=== PATIENT | female | born 1955 | race Caucasian/White ===

== ENCOUNTER 2021-01-11 15:25 | Emergency (ER) | payer MEDICARE, SELFPAY ==
--- NOTE | ~2021-01-11 | XR_ITS ---
EXAMINATION: XR chest 2V, XR sternum min 2V DATE: 01/11/2021 16:32 INDICATION: Sternal/chest discomfort post fall one week prior TECHNIQUE: 1. Frontal and lateral views of the chest were obtained. 2. Lateral and FAYE views of the sternum were obtained. COMPARISON: None FINDINGS: No focal airspace opacities, pulmonary edema, pleural effusion or pneumothorax. Opacity with smooth m argins posterior to the heart and at the left cardiophrenic angle suggesting a hiatal hernia. Heart s ize is normal. Tortuous thoracic aorta. Moderate thoracic spondylosis. There is a subtle step-off raul ng the anterior cortex of the lower sternum consistent with nondisplaced fracture. No evident overlyi ng presternal or retrosternal hematoma. IMPRESSION: 1. Nondisplaced fracture involving at least the anterior cortex of the inferior sternum. 2. No acute cardiopulmonary disease. 3. Likely small to moderate hiatal hernia. Reviewed, dictated and finalized at location A. RONMENTAL ATTORNEY IMPRESSION: 1. Nondisplaced fracture involving at least the anterior cortex of the inferior sternum. 2. No acute cardiopulmonary disease. 3. Likely small to moderate hiatal hernia.
--- NOTE | 2021-01-11 15:33 | ED.FALL ---
HPI - Fall General Chief Complaint: Chest Pain Stated Complaint: Chest Pain/Fall Time Seen by Provider: 01/11/21 15:32 Source: patient Mode of arrival: ambulatory Limitations: no limitations History of Present Illness HPI Narrative: Patient is a 65-year-old female who presents with right-sided sternal and rib pain. She reports slip and fall on Friday in which she fell on chest. She reports consistent pain since. She reports increased pain with deep breathing. Patient reports she is unable to cough without pain. She denies cardiac pain. She denies shortness of breath. She denies other injuries. She reports taking multiple otc meds without relief. MD complaint: fall Related Data Home Medications Medication Instructions Recorded Confirmed bupropion HCl 300 mg PO DAILY 01/11/21 01/11/21 escitalopram oxalate 20 mg PO DAILY 01/11/21 01/11/21 ferrous sulfate 325 mg PO BID 01/11/21 01/11/21 hydrocodone-acetaminophen 1 tablet PO Q4H PRN 01/11/21 01/11/21 hydroxychloroquine 200 mg PO DAILY 01/11/21 01/11/21 lisinopril 5 mg PO DAILY 01/11/21 01/11/21 omeprazole 40 mg PO DAILY 01/11/21 01/11/21 pravastatin 20 mg PO DAILY 01/11/21 01/11/21 rivaroxaban [Xarelto] 20 mg PO DAILY 01/11/21 01/11/21 sotalol 80 mg PO BID 01/11/21 01/11/21 spironolactone 25 mg PO DAILY 01/11/21 01/11/21 sulfamethoxazole-trimethoprim 1 tablet PO 3XW 01/11/21 01/11/21 zolpidem 5 mg PO HS PRN 01/11/21 01/11/21 Allergies Allergy/AdvReac Type Severity Reaction Status Date / Time morphine Allergy Unknown Unknown Verified 01/11/21 16:01 Review of Systems Review of Systems: Narrative: CONSTITUTIONAL: Denies fever, chills, or sweats. EYES: Denies visual changes, redness, or discharge. ENT: Denies rhinorrhea, congestion, sore throat, or otalgia. CARDIOVASCULAR: Denies chest pain, palpitations, or edema. RESPIRATORY: Denies cough or dyspnea. Reports midsternal pain in the chest related to fall GASTROINTESTINAL: Denies abdominal pain, nausea, vomiting, or diarrhea. GENITOURINARY: Denies dysuria or hematuria. SKIN: Denies rash or itching. MUSCULOSKELETAL: Reports right rib and sternal pain NEUROLOGIC: Denies headache, numbness, dizziness, or weakness. PSYCHIATRIC: Denies anxiety or depression. [facility] Past Medical History Medical History Arthritis Atrial fibrillation, controlled CHF (congestive heart failure) GERD (gastroesophageal reflux disease) Mass of right lung Post-menopausal UTI (urinary tract infection) Karena's osteochondritis Surgical History Surgical History H/O Spinal surgery Family History Family History (Updated 01/11/21 @ 15:40 by MARY GRACE Sandoval) Other Heart disease Social History Social History (Updated 01/11/21 @ 15:40 by MARY GRACE Sandoval) Smoking status: Never smoker Alcohol intake: never Substance use: never Occupation/Education: retired Comments At the time of signature, I have reviewed and agree with nursing past medical, surgical, social, and family history unless otherwise noted. Please see nursing chart for further information. There is no relevant family history pertinent to the presenting complaint. Exam Narrative: Exam Narrative: GENERAL: Well-appearing, well-nourished, and in no acute distress. HEAD: Normocephalic, atraumatic. EYES: EOMI. No redness or drainage. Conjunctiva are normal. ENT: Mucous membranes pink and moist. NECK: AROM. Supple. No lymphadenopathy. CHEST: No respiratory distress. Clear to auscultation. HEART: Regular rate and rhythm. EXTREMITIES: Normal range of motion. No edema. SKIN: Warm, dry, no rash. NEURO: No focal deficits. Alert and oriented x3. Gait steady. PSYCH: Normal affect. No signs of depression or anxiety. Course Vital Signs Vital signs: Vital Signs Temperature 36.7 C 01/11/21 15:40 Pulse Rate 60 01/11/21 15:40 Respiratory Rate
[2021-01-11 15:40] VITALS: BP 99/68; PULSE 60; RESP 20; TEMP 36.7; O2SAT 100
== END 2021-01-11 17:03 | disposition short-term general hospital (02) ==
PROVIDERS: Emergency Provider Nurse Practitioner; PCP Internal Medicine
DX: S22.20XA Unspecified fracture of sternum, initial encounter for closed fracture (principal); W01.0XXA Fall on same level from slipping, tripping and stumbling without subsequent striking against object, initial encounter; M19.90 Unspecified osteoarthritis, unspecified site; I48.91 Unspecified atrial fibrillation; I50.9 Heart failure, unspecified; K21.9 Gastro-esophageal reflux disease without esophagitis; A50.02 Early congenital syphilitic osteochondropathy
CPT/HCPCS: 71046; 71120; 99213; G0463

== ENCOUNTER 2022-10-19 08:30 | Emergency (ER) | payer MEDICARE, SELFPAY ==
[2022-10-19 08:41] VITALS: BP 95/62; PULSE 74; RESP 16; TEMP 35.7; O2SAT 99
--- NOTE | 2022-10-19 09:10 | ED.FEMALEGU ---
HPI - Female Genitourinary General Chief complaint: Urogenital-Female <Kala Fallon NP - Last Filed: 10/22/22 15:24> Stated complaint: UTI <Kala Fallon NP - Last Filed: 10/22/22 15:24> Time Seen by Provider: 10/19/22 09:10 <Kala Fallon NP - Last Filed: 10/22/22 15:24> Source: patient, RN notes reviewed and old records reviewed <Kala Fallon NP - Last Filed: 10/22/22 15:24> Mode of arrival: ambulatory <Kala Fallon NP - Last Filed: 10/22/22 15:24> Limitations: no limitations <Kala Fallon NP - Last Filed: 10/22/22 15:24> History of Present Illness HPI Narrative: 67-year-old female presents to [facility] with complaints of burning with urination starting at 7:30 a.m. this morning with frequency and urgency. Patient states she has a history of having autoimmune disease called GPA vasculitis and does take Bactrim 3 times per week. Patient denies any vaginal discharge or any concern STD exposure. Patient denies any flank pain or any visible blood in urine, reports history of UTI's. <Kala Fallon NP - Last Filed: 10/22/22 15:24> MD elicited complaint: UTI <Kala Fallon NP - Last Filed: 10/22/22 15:24> Onset (ago): hour(s) (0730 this morning) <Kala Fallon NP - Last Filed: 10/22/22 15:24> Location of symptoms: perineum <Kala Fallon NP - Last Filed: 10/22/22 15:24> Severity: similar to previous episodes <Kala Fallon NP - Last Filed: 10/22/22 15:24> Severity scale (1-10): 10 <Kala Fallon NP - Last Filed: 10/22/22 15:24> Quality of pain: sharp and burning <Kala Fallon NP - Last Filed: 10/22/22 15:24> Urinary symptoms: Dysuria (Burning and perineal pain) <Kala Fallon NP - Last Filed: 10/22/22 15:24> Related Data Home medications: Home Medications Medication Instructions Recorded Confirmed bupropion HCl 300 mg 24 hr tablet, 300 mg PO DAILY 01/11/21 10/19/22 extended release escitalopram oxalate 20 mg tablet 20 mg PO DAILY 01/11/21 10/19/22 ferrous sulfate 325 mg (65 mg 325 mg PO BID 01/11/21 10/19/22 iron) tablet hydrocodone 10 mg-acetaminophen 1 tablet PO Q4H PRN Pain 01/11/21 10/19/22 325 mg tablet hydroxychloroquine 200 mg tablet 200 mg PO DAILY 01/11/21 10/19/22 lisinopril 5 mg tablet 5 mg PO DAILY 01/11/21 10/19/22 omeprazole 40 mg capsule,delayed 40 mg PO DAILY 01/11/21 10/19/22 release pravastatin 20 mg tablet 20 mg PO DAILY 01/11/21 10/19/22 rivaroxaban 20 mg tablet (Xarelto) 20 mg PO DAILY 01/11/21 10/19/22 sotalol 80 mg tablet 80 mg PO BID 01/11/21 10/19/22 spironolactone 25 mg tablet 25 mg PO DAILY 01/11/21 10/19/22 zolpidem 5 mg tablet 5 mg PO HS PRN Sleep 01/11/21 10/19/22 <Kala Fallon NP - Last Filed: 10/22/22 15:24> Allergies/Adverse reactions: Allergies Allergy/AdvReac Type Severity Reaction Status Date / Time morphine Allergy Unknown Unknown Verified 10/19/22 09:14 <Kala Fallon NP - Last Filed: 10/22/22 15:24> Review of Systems Review of Systems: CONSTITUTIONAL: Denies fever, chills, or sweats. CARDIOVASCULAR: Denies chest pain, palpitations, or edema. RESPIRATORY: Denies cough or dyspnea. GASTROINTESTINAL: Denies abdominal pain, nausea, vomiting, or diarrhea. GENITOURINARY: Reports dysuria, frequency, urgency. Denies flank pain or hematuria. Positive for pain perineal area with urinary burning SKIN: Denies rash or itching. MUSCULOSKELETAL: Denies back pain or myalgia. Denies CVA tenderness NEUROLOGIC: Denies headache <Kala Fallon NP - Last Filed: 10/22/22 15:24> All systems reviewed & are unremarkable except as noted in HPI and below <Kala Fallon NP - Last Filed: 10/22/22 15:24> [facility] Past Medical History Medical History: Medical History (Updated 10/20/22 @ 00:00 by Background Daemon) Arthritis Atrial fibrillation, controlled CHF (congestive heart failure) GERD
== END 2022-10-19 09:23 | disposition home or self-care (01) ==
PROVIDERS: Emergency Provider Registered Nurse; PCP Internal Medicine
DX: N39.0 Urinary tract infection, site not specified (principal); I48.91 Unspecified atrial fibrillation; I50.9 Heart failure, unspecified; Z79.891 Long term (current) use of opiate analgesic
CPT/HCPCS: 81003; 87077; 87086; 87186; 99213; G0463

== ENCOUNTER 2023-11-12 17:11 | Emergency (ER) | payer MEDICARE, SELFPAY ==
--- NOTE | ~2023-11-12 | XR_ITS ---
EXAMINATION: XR chest 2V DATE: 11/12/2023 17:49 INDICATION: Fever. TECHNIQUE: Frontal and lateral views of the chest were obtained. COMPARISON: Chest 2 views 01/11/2021 FINDINGS: There are airspace opacities in right lower lung zone. No pleural effusion or pneumothorax. The heart size is normal. There is a large hiatal hernia. IMPRESSION: 1. Airspace opacities in right lower lung zone, consistent with atelectasis versus pneumonia. 2. Large hiatal hernia. Reviewed, dictated and finalized at location E. TRIC ENGINE MECHANIC IMPRESSION: 1. Airspace opacities in right lower lung zone, consistent with atelectasis simon silke pneumonia. 2. Large hiatal hernia.
[2023-11-12 17:17] VITALS: BP 92/58; PULSE 86; RESP 18; TEMP 36.9; O2SAT 96
--- NOTE | 2023-11-12 17:19 | ED.URI ---
HPI - URI/Sore Throat General Chief Complaint: Upper Respiratory Infection Stated Complaint: poss bronchitis Time Seen by Provider: 11/12/23 17:38 Source: patient and RN notes reviewed Mode of arrival: ambulatory Limitations: no limitations History of Present Illness HPI Narrative: 68-year-old female with history of CHF, chronic bronchitis presents with concern for cough, chest pain with coughing, general malaise, chills, sweats, headache. She reports 2 day history of symptoms MD elicited complaint: cough and sore throat Related Data Home Medications Medication Instructions Recorded Confirmed bupropion HCl 300 mg 24 hr tablet, 300 mg PO DAILY 01/11/21 11/12/23 extended release escitalopram oxalate 20 mg tablet 20 mg PO DAILY 01/11/21 11/12/23 ferrous sulfate 325 mg (65 mg 325 mg PO BID 01/11/21 11/12/23 iron) tablet hydrocodone 10 mg-acetaminophen 1 tablet PO Q4H PRN Pain 01/11/21 11/12/23 325 mg tablet hydroxychloroquine 200 mg tablet See Rx Instructions .Route .COMPLEX 01/11/21 11/12/23 lisinopril 5 mg tablet 5 mg PO DAILY 01/11/21 11/12/23 omeprazole 40 mg capsule,delayed 40 mg PO DAILY 01/11/21 11/12/23 release pravastatin 20 mg tablet 20 mg PO DAILY 01/11/21 11/12/23 rivaroxaban 20 mg tablet (Xarelto) 20 mg PO DAILY 01/11/21 11/12/23 sotalol 80 mg tablet 80 mg PO BID 01/11/21 11/12/23 spironolactone 25 mg tablet 25 mg PO DAILY 01/11/21 11/12/23 zolpidem 5 mg tablet 5 mg PO HS PRN Sleep 01/11/21 11/12/23 ergocalciferol (vitamin D2) 1,250 1,250 mcg PO WEEKLY 11/12/23 11/12/23 mcg (50,000 unit) capsule sulfamethoxazole 800 tablet 11/12/23 11/12/23 mg-trimethoprim 160 mg tablet Allergies Allergy/AdvReac Type Severity Reaction Status Date / Time morphine Allergy Unknown Unknown Verified 10/19/22 09:14 Review of Systems Review of Systems: CONSTITUTIONAL: Reports malaise, chills, sweats EYES: Denies visual changes, redness, or discharge. ENT: Reports rhinorrhea, congestion CARDIOVASCULAR: Denies chest pain, palpitations, or edema. RESPIRATORY: Reports cough, dyspnea. GASTROINTESTINAL: Denies abdominal pain, nausea, vomiting, diarrhea SKIN: Denies rash or itching. MUSCULOSKELETAL: Reports myalgia. NEUROLOGIC: Reports headache. All systems reviewed & are unremarkable except as noted in HPI and below PMFSH Past Medical History Medical History (Updated 11/12/23 @ 17:59 by Poly Patel NP) Arthritis Atrial fibrillation, controlled CHF (congestive heart failure) GERD (gastroesophageal reflux disease) Mass of right lung Post-menopausal UTI (urinary tract infection) Karena's osteochondritis Surgical History Surgical History H/O sinus surgery H/O Spinal surgery History of placement of ear tubes Family History Family History (Updated 01/11/21 @ 15:40 by Miriam Calix, JAVASCRIPT ENGINEER) Other Heart disease Social History Social History (Updated 01/11/21 @ 15:40 by Miriam Calix, JAVASCRIPT ENGINEER) Smoking status: Never smoker Alcohol intake: never Substance use: never Occupation/Education: retired Comments At time of signature, agree with nursing past medical, surgical, social and family history. There is no relevant family history pertinent to the presenting complaint Exam Narrative: GENERAL: Nontoxic-appearing and in no acute distress. HEAD: Normocephalic EYES: PERRLA, conjunctivae clear ENT: Nares clear. Mucous membranes moist. TM not visible due to excess cerumen bilaterally; no tragal tenderness. Oropharynx not erythematous without lesions. Tonsils not enlarged and without exudate, no drooling, no hoarseness, no trismus, uvula midline. NECK: Supple. No lymphadenopathy CHEST: Scattered wheeze and rhonchi, breath sounds diminished on the left. No rales, or stridor. No respiratory distress, speaks in full sentences. HEART: Regular rate and rhythm. No murmur heard. SKIN: Warm, dry, no rash. NEURO: Alert and oriented x3.
== END 2023-11-12 18:05 | disposition home or self-care (01) ==
PROVIDERS: Emergency Provider Nurse Practitioner; PCP Internal Medicine
DX: J18.9 Pneumonia, unspecified organism (principal); J10.1 Influenza due to other identified influenza virus with other respiratory manifestations; Z20.822 Contact with and (suspected) exposure to COVID-19; M19.90 Unspecified osteoarthritis, unspecified site; I48.91 Unspecified atrial fibrillation; K21.9 Gastro-esophageal reflux disease without esophagitis; I50.9 Heart failure, unspecified
CPT/HCPCS: 71046; 87426; 87804; 99213; C9803; G0463

== ENCOUNTER 2024-03-28 12:28 | Emergency (ER) | payer MEDICARE, SELFPAY ==
[2024-03-28 12:42] VITALS: BP 100/61; PULSE 76; RESP 20; TEMP 36.7; O2SAT 98
--- NOTE | 2024-03-28 12:49 | ED.FEMALEGU ---
HPI - Female Genitourinary General Chief complaint: Urogenital-Female Stated complaint: UTI symptoms Time Seen by Provider: 03/28/24 12:50 Source: patient, RN notes reviewed and old records reviewed Mode of arrival: ambulatory Limitations: no limitations History of Present Illness HPI Narrative: 68 year old female who presents to express care with complaints of burning and frequency of urination with urgency since this morning. Patient has history of Alvaro's vasculitis and takes Bactrim 3 times weekly as preventative for infection. Patient reports that she has some bladder pressure and also pain with burning at the urethra. Patient denies any known fevers chills or sweats.She reports no vaginal discharge or concern for STD exposure. MD elicited complaint: UTI Pertinent past history: other (previous UTI's) Onset (ago): hour(s) (this morning) Location of symptoms: urethra and other (bladder pressure) Severity: moderate Vaginal discharge: none Vaginal bleeding: none Urinary symptoms: Dysuria, Urgency and Frequency Treatment prior to arrival: other (takes Bactrim 3X wekly) Related Data Home Medications Medication Instructions Recorded Confirmed bupropion HCl 300 mg 24 hr tablet, 300 mg PO DAILY 01/11/21 11/12/23 extended release escitalopram oxalate 20 mg tablet 20 mg PO DAILY 01/11/21 11/12/23 ferrous sulfate 325 mg (65 mg 325 mg PO BID 01/11/21 11/12/23 iron) tablet hydrocodone 10 mg-acetaminophen 1 tablet PO Q4H PRN Pain 01/11/21 11/12/23 325 mg tablet hydroxychloroquine 200 mg tablet See Rx Instructions .Route .COMPLEX 01/11/21 11/12/23 lisinopril 5 mg tablet 5 mg PO DAILY 01/11/21 11/12/23 omeprazole 40 mg capsule,delayed 40 mg PO DAILY 01/11/21 11/12/23 release pravastatin 20 mg tablet 20 mg PO DAILY 01/11/21 11/12/23 rivaroxaban 20 mg tablet (Xarelto) 20 mg PO DAILY 01/11/21 11/12/23 sotalol 80 mg tablet 80 mg PO BID 01/11/21 11/12/23 spironolactone 25 mg tablet 25 mg PO DAILY 01/11/21 11/12/23 zolpidem 5 mg tablet 5 mg PO HS PRN Sleep 01/11/21 11/12/23 ergocalciferol (vitamin D2) 1,250 1,250 mcg PO WEEKLY 11/12/23 11/12/23 mcg (50,000 unit) capsule sulfamethoxazole 800 tablet 11/12/23 11/12/23 mg-trimethoprim 160 mg tablet Allergies Allergy/AdvReac Type Severity Reaction Status Date / Time morphine Allergy Unknown Unknown Verified 10/19/22 09:14 Review of Systems Review of Systems: CONSTITUTIONAL: Denies fever, chills, or sweats. CARDIOVASCULAR: Denies chest pain, palpitations, or edema. RESPIRATORY: Denies cough or dyspnea. GASTROINTESTINAL: Denies abdominal pain, nausea, vomiting, or diarrhea. GENITOURINARY: Reports dysuria, frequency, urgency. Denies flank pain or visible hematuria. SKIN: Denies rash or itching. MUSCULOSKELETAL: Denies back pain or myalgia. Denies CVA tenderness NEUROLOGIC: Denies headache All systems reviewed & are unremarkable except as noted in HPI and below PMFSH Past Medical History Medical History Arthritis Atrial fibrillation, controlled CHF (congestive heart failure) GERD (gastroesophageal reflux disease) Mass of right lung Post-menopausal UTI (urinary tract infection) Karena's osteochondritis Surgical History Surgical History H/O sinus surgery H/O Spinal surgery History of placement of ear tubes Family History Family History Other Heart disease Social History Social History Smoking status: Never smoker Alcohol intake: never Substance use: never Occupation/Education: retired Comments At time of signature, agree with nursing past medical, surgical, social and family history. There is no relevant family history pertinent to the presenting complaint Exam Narrative: GENERAL: Well-appearing, well-nourished, and in
== END 2024-03-28 13:29 | disposition home or self-care (01) ==
PROVIDERS: Emergency Provider Registered Nurse; PCP Internal Medicine
DX: N39.0 Urinary tract infection, site not specified (principal); B96.20 Unspecified Escherichia coli [E. coli] as the cause of diseases classified elsewhere; M19.90 Unspecified osteoarthritis, unspecified site; I48.91 Unspecified atrial fibrillation; I50.9 Heart failure, unspecified; K21.9 Gastro-esophageal reflux disease without esophagitis; Z79.01 Long term (current) use of anticoagulants
CPT/HCPCS: 81003; 87077; 87086; 87088; 87186; 99213; G0463

== ENCOUNTER 2024-04-16 17:04 | Emergency (ER) | payer MEDICARE, SELFPAY ==
[2024-04-16 17:21] VITALS: BP 139/100; PULSE 76; RESP 16; TEMP 37.6; O2SAT 96
--- NOTE | 2024-04-16 17:25 | ED.FALL ---
HPI - Fall General Chief Complaint: Fall Stated Complaint: Fall Injury/Right Wrist/Elbow/Right Knee Source: patient Mode of arrival: ambulatory Limitations: no limitations History of Present Illness HPI Narrative: 68-year-old female presented for complaint of pain, bruising and swelling to the right wrist after injury sustained last night. Endorses decreased range of motion to the wrist. Patient states 3 days ago she was seen in the emergency room for complaint of pain from the right hip and right groin, CT showed herniated discs. Since then she states she fell 5 times yesterday due to right knee 'giving out, one of the falls resulted in wrist injury. She is able to move fingers without difficulty. denies numbness, tingling or weakness of the extremities. patient is right-hand dominant. Related Data Home Medications Medication Instructions Recorded Confirmed bupropion HCl 300 mg 24 hr tablet, 300 mg PO DAILY 01/11/21 11/12/23 extended release escitalopram oxalate 20 mg tablet 20 mg PO DAILY 01/11/21 11/12/23 hydrocodone 10 mg-acetaminophen 1 tablet PO Q4H PRN Pain 01/11/21 11/12/23 325 mg tablet hydroxychloroquine 200 mg tablet See Rx Instructions .Route .COMPLEX 01/11/21 11/12/23 lisinopril 5 mg tablet 5 mg PO DAILY 01/11/21 11/12/23 omeprazole 40 mg capsule,delayed 40 mg PO DAILY 01/11/21 11/12/23 release pravastatin 20 mg tablet 20 mg PO DAILY 01/11/21 11/12/23 rivaroxaban 20 mg tablet (Xarelto) 20 mg PO DAILY 01/11/21 11/12/23 sotalol 80 mg tablet 80 mg PO BID 01/11/21 11/12/23 spironolactone 25 mg tablet 25 mg PO DAILY 01/11/21 11/12/23 gabapentin 300 mg capsule mg 04/16/24 metoprolol succinate 25 mg mg PO 04/16/24 tablet,extended release 24 hr Allergies Allergy/AdvReac Type Severity Reaction Status Date / Time morphine Allergy Unknown Unknown Verified 04/16/24 17:18 Review of Systems Review of Systems: CONSTITUTIONAL: Denies body aches, fever, chills CARDIOVASCULAR: Denies chest pain, palpitations, or edema. RESPIRATORY: Denies cough or dyspnea. GASTROINTESTINAL: Denies abdominal pain, nausea, vomiting, or diarrhea. SKIN: Denies rash, itching, or wounds. MUSCULOSKELETAL: Per HPI NEUROLOGIC: Denies headache, numbness, tingling, or weakness. All systems reviewed & are unremarkable except as noted in HPI and below PMFSH Past Medical History Medical History Arthritis Atrial fibrillation, controlled CHF (congestive heart failure) GERD (gastroesophageal reflux disease) Mass of right lung Post-menopausal UTI (urinary tract infection) Karena's osteochondritis Surgical History Surgical History H/O sinus surgery H/O Spinal surgery History of placement of ear tubes Family History Family History Other Heart disease Social History Social History Smoking status: Never smoker Alcohol intake: never Substance use: never Occupation/Education: retired Comments At time of signature, I have reviewed and agree with nursing past medical, surgical, social and family history unless otherwise noted. Please see nursing chart for further information. There is no relevant family history pertinent to the presenting complaint Exam Narrative: GENERAL: Well-appearing CHEST: Speaks in full sentences. No respiratory distress. HEART: Regular rate and rhythm. Normal and equal peripheral pulses. EXTREMITIES: Right wrist dorsal aspect with swelling and tenderness over ulnar styloid process. Distal ulna volar aspect with area of swelling, ecchymosis, and tenderness approx [id number]. Ecchymosis noted to dorsal and volar aspects of right wrist. Decreased ROM at wrist with flexion/extension, reports pain. Normal finger cascade and ROM. No open wounds; alignment normal, pulse palp
== END 2024-04-16 18:22 | disposition left against medical advice (07) ==
LOC: EXPBETH 17:08
PROVIDERS: Emergency Provider Nurse Practitioner Family
DX: M25.531 Pain in right wrist (principal); W19.XXXA Unspecified fall, initial encounter; M19.90 Unspecified osteoarthritis, unspecified site; I48.91 Unspecified atrial fibrillation; I50.9 Heart failure, unspecified
CPT/HCPCS: 99212; G0463